=== PATIENT | female | born 1985 | race Caucasian/White ===

== ENCOUNTER 2017-11-06 16:01 | Emergency (ER) | payer OTHER ==
[2017-11-06] MEDS ORDERED: HYDROCODONE/APAP 7.5/325 MG TAB ONE (16:27)
[2017-11-06] MEDS ORDERED: IBUPROFEN 400 MG TAB ONE (16:28)
[2017-11-06] MEDS ORDERED: TETANUS & DIPHTHERIA TOX,ADULT 0.5 ML VIAL ONE (16:28)
--- NOTE | 2017-11-06 16:56 | RAD REPORT ---
EXAM DESCRIPTION: RAD - Foot Right 3 View - 11/06/2017 4:28 pm CLINICAL HISTORY: Puncture wound, sting ray injury, location not specified COMPARISON: None. FINDINGS: No fracture, dislocation or periosteal reaction. No acute bone or joint finding. No sting ray leatha or other radiopaque foreign body identifiable. No air or calcification in the soft tissues. IMPRESSION: No foreign body identifiable. No acute bone finding.
--- NOTE | 2017-11-06 17:09 | ER ---
Nurse's Notes [facility] Name: Kiran Rizvi Age: 31 yrs Sex: Female : 1985 Arrival Date: 11/06/2017 Time: 16:04 Bed 17 Private MD: out of town, doctor Diagnosis: Puncture wound without foreign body of foot-Right Presentation: 11/06 16:06 Presenting complaint: Patient states: stung by a sting ray today to the right foot. sv Transition of care: patient was not received from another setting of care. Onset of symptoms was November 06, 2017. Care prior to arrival: None. 16:06 Method Of Arrival: Wheelchair sv 16:06 Acuity: JIGNA 4 sv 16:21 Risk Assessment: Do you want to hurt yourself or someone else? Patient reports no hj desire to harm self or others. Initial Sepsis Screen: Does the patient meet any 2 criteria? No. Patient's initial sepsis screen is negative. Does the patient have a suspected source of infection? No. Patient's initial sepsis screen is negative. Triage Assessment: 16:21 General: Appears in no apparent distress. uncomfortable, Behavior is calm, cooperative, hj appropriate for age. Pain: Complains of pain in right foot. 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 - Social history:: Smoking status: Patient/guardian denies using tobacco. - Ebola Screening: : No symptoms or risks identified at this time. Screenin:21 Abuse screen: Denies threats or abuse. Denies injuries from another. Nutritional hj screening: No deficits noted. Tuberculosis screening: No symptoms or risk factors identified. Fall Risk None identified. Assessment: 16:08 Reassessment: see triage for assessment;. hj 17:00 Reassessment: Patient and/or family updated on plan of care and expected duration. Pain hj level reassessed. Patient is alert, oriented x 3, equal unlabored respirations, skin warm/dry/pink. R foot soaked in warm water;. 18:02 Reassessment: Patient and/or family updated on plan of care and expected duration. Pain hj level reassessed. Patient is alert, oriented x 3, equal unlabored respirations, skin warm/dry/pink. D/C instructions given;. Vital Signs: 16:08 BP 150 / 135; Pulse 81; Resp 22; Temp 98.2; Pulse Ox 100% ; Weight 65.77 kg; Height 5 sv ft. 5 in. (165.10 cm); Pain 10/10; 17:00 BP 140 / 96; Pulse 85; Resp 18; Pulse Ox 100% on R/A; hj 18:02 BP 145 / 95; Pulse 80; Resp 18; Pulse Ox 100% on R/A; hj 16:08 Body Mass Index 24.13 (65.77 kg, 165.10 cm) sv ED Course: 16:04 Patient arrived in ED. mr 16:05 out of town, doctor is Private Physician. mr 16:07 Triage completed. sv 16:08 Arm band placed on left wrist. sv 16:17 Kiran Chilel PA is PHCP. cp 16:17 Devan Dominguez MD is Attending Physician. cp 16:21 Javi Barlow RN is Primary Nurse. hj 16:22 Patient has correct armband on for positive identification. Bed in low position. Call hj light in reach. Side rails up X 1. Adult w/ patient. 16:27 X-ray completed. Portable x-ray completed in exam room. Patient tolerated procedure ml well. 16:28 Foot Right 3 View XRAY In Process Unspecified. EDMS 17:50 Wound care: cleaned wound to right foot with chlorhexidine and normal saline, applied dh3 triple antibiotic ointment and an non-adherent dressing and tube gauze. 18:00 No provider procedures requiring assistance completed. Patient did not have IV access hj during this emergency room visit. Administered Medications: 16:22 Drug: Ibuprofen 800 mg Route: PO; hj 17:59 Follow up: Response: No adverse reaction hj 16:22 Drug: Hydrocodone-Acetaminophen (7.5 mg-325 mg) 1 tabs Route: PO; hj 17:59 Follow up: Response: Pain is unchanged, physician notified hj 16:22 Drug: Tetanus-Diphtheria Toxoid Adult 0.5 ml {Cereal Popper: [employer]. Exp: 01/09/2019. Lot #: [id number]. } Route: IM; Site: left deltoid; 17:59 Follow up: Response: No adverse reaction hj 17:29 Drug: Dilaudid 0.5 mg Route: IM; Site: right deltoid; hj 17:59 Follow up: Response: No adverse reaction; Pain is decreased hj 17:49 Drug: Zofran 4 mg Route: PO; hj 17:59 Follow up: Response: No adverse reaction; Nausea is decreased Outcome: 17:08 Discharge ordered by . sharif 18:00 Discharged to home ambulatory, with crutches, with family. 18:00 Condition: stable 18:00 Discharge instructions given to patient, family, Instructed on discharge instructions, follow up and referral plans. medication usage, crutch walking, wound care, Demonstrated understanding of instructions, follow-up care, medications, wound care, crutch walking, Prescriptions given X 3. 18:03 Patient left the ED. Signatures: Dispatcher [employer] EDMS Fiorella Lamar RN RN sv Rivera, Maria mr Lopez, Melissa ml Joaquin, Henry, RN RN Kiran Chilel PA PA cp Herrera, Deanna 3 Corrections: (The following items were deleted from the chart) 16:09 16:08 Pulse 81bpm; Resp 22bpm; Pulse Ox 100%; Temp 98.2F; 65.77 kg; Height 5 ft. 5 in.; sv BMI: 24.1; Pain 10/10; sv
--- NOTE | 2017-11-06 17:09 | EDPHYS ---
Physician Documentation [facility] Name: Kiran Rizvi Age: 31 yrs Sex: Female : 1985 Arrival Date: 11/06/2017 Time: 16:04 Bed 17 Private MD: out of town, doctor ED Physician Devan Dominguez HPI: 11/06 16:21 This 31 yrs old Female presents to ER via Wheelchair with complaints of Stung cp by sting ray. 16:21 The patient presents with an injury, a puncture wound, stingray leatha. cp 16:21 The complaints affect the dorsum of right foot. Onset: The symptoms/episode cp began/occurred just prior to arrival. Associated signs and symptoms: Pertinent positives: pain, Pertinent negatives: calf tenderness, fever. Severity of symptoms: in the emergency department the symptoms are actually worse, markedly. 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 - Social history:: Smoking status: Patient/guardian denies using tobacco. - Ebola Screening: : No symptoms or risks identified at this time. ROS: 16:22 Eyes: Negative for injury, pain, redness, and discharge. cp 16:22 Constitutional: Negative for body aches, chills, fever, poor PO intake. 16:22 ENT: Negative for drainage from ear(s), ear pain, sore throat, difficulty swallowing, difficulty handling secretions. 16:22 Cardiovascular: Negative for chest pain, edema, palpitations. 16:22 Respiratory: Negative for cough, shortness of breath, wheezing. 16:22 Abdomen/GI: Negative for abdominal pain, nausea, vomiting, and diarrhea, constipation. 16:22 MS/extremity: Positive for pain, tenderness, of the right foot. 16:22 Skin: Positive for puncture, of the dorsum right foot. 16:22 Neuro: Negative for altered mental status, headache, weakness. 16:22 All other systems are negative. Exam: 16:30 Head/Face: Normocephalic, atraumatic. cp 16:30 Constitutional: The patient appears in no acute distress, alert, awake, non-toxic, well developed, well nourished, in obvious pain, uncomfortable. 16:30 Eyes: Periorbital structures: appear normal, Conjunctiva: normal, no exudate, no cp injection, Lids and lashes: appear normal, bilaterally. 16:30 ENT: External ear(s): are unremarkable, Nose: is normal, Mouth: is normal, Posterior pharynx: is normal, airway is patent. 16:30 Neck: ROM/movement: is normal, is supple, without pain, no range of motions limitations, no nuchal rigidity. 16:30 Chest/axilla: Inspection: normal, Palpation: is normal, no crepitus, no tenderness. 16:30 Cardiovascular: Rate: normal, Rhythm: regular. 16:30 Respiratory: the patient does not display signs of respiratory distress, Respirations: normal, no use of accessory muscles, no retractions, no splinting, no tachypnea, labored breathing, is not present, Breath sounds: are clear throughout, no decreased breath sounds, no stridor, no wheezing. 16:30 Abdomen/GI: Exam negative for discomfort, distension, guarding, Inspection: abdomen appears normal. 16:30 Back: pain, is absent, ROM is normal. 16:30 Skin: injury, that can be described as no foreign body, with mild bleeding, puncture(s), that are deep, of the dorsum of right foot. 16:30 Neuro: Orientation: to person, place \T\ time. Mentation: lucid, able to follow commands, Cerebellar function: is grossly normal, Sensation: Vital Signs: 16:08 BP 150 / 135; Pulse 81; Resp 22; Temp 98.2; Pulse Ox 100% ; Weight 65.77 kg; Height 5 sv ft. 5 in. (165.10 cm); Pain 10/10; 17:00 BP 140 / 96; Pulse 85; Resp 18; Pulse Ox 100% on R/A; hj 18:02 BP 145 / 95; Pulse 80; Resp 18; Pulse Ox 100% on R/A; hj 16:08 Body Mass Index 24.13 (65.77 kg, 165.10 cm) sv MDM: 16:18 Patient medically screened. cp 16:23 Differential diagnosis: fracture, sprain, foreign body, open fracture. cp 17:05 Counseling: I had a detailed discussion with the patient and/or guardian regarding: the cp historical points, exam findings, and any diagnostic results supporting the discharge/admit diagnosis, radiology results, the need for outpatient follow up, a family practitioner, to return to the emergency department if symptoms worsen or persist or if there are any questions or concerns that arise at home. 17:05 Response to treatment: the patient's symptoms have markedly improved after treatment, and as a result, I will discharge patient. Special discussion: I discussed in detail with the patient the higher chance of wound infection based on his presenting history. ED course: VSS. Pain improved with meds. Wound cleaned and dressed. Will discharge to home for continued monitoring. 17:07 Data reviewed: vital signs, nurses notes, radiologic studies, plain films. 11/06 16:08 Order name: Foot Right 3 View XRAY; Complete Time: 17:01 sv 11/06 17:01 Interpretation: Report reviewed. 11/06 17:02 Order name: Wound Care: please clean and irrigate wound, then dress; Complete Time: 17:53 11/06 17:07 Order name: Crutches; Complete Time: 17:53 cp Administered Medications: 16:22 Drug: Ibuprofen 800 mg Route: PO; 17:59 Follow up: Response: No adverse reaction 16:22 Drug: Hydrocodone-Acetaminophen (7.5 mg-325 mg) 1 tabs Route: PO; 17:59 Follow up: Response: Pain is unchanged, physician notified 16:22 Drug: Tetanus-Diphtheria Toxoid Adult 0.5 ml {Wellness Health Coach: [employer]. Exp: 01/09/2019. Lot #: [id number]. } Route: IM; Site: left deltoid; 17:59 Follow up: Response: No adverse reaction 17:29 Drug: Dilaudid 0.5 mg Route: IM; Site: right deltoid; 17:59 Follow up: Response: No adverse reaction; Pain is decreased 17:49 Drug: Zofran 4 mg Route: PO; hj 17:59 Follow up: Response: No adverse reaction; Nausea is decreased Disposition: 18:05 Co-signature as Attending Physician, Devan Dominguez MD. rn Disposition: 11/06/17 17:08 Discharged to Home. Impression: Puncture wound without foreign body of foot - Right. - Condition is Stable. - Discharge Instructions: Puncture Wound. - Prescriptions for Ibuprofen 800 mg Oral Tablet - take 1 tablet by ORAL route every 8 hours As needed take with food; 30 tablet. Tylenol- Codeine #3 300-30 mg Oral Tablet - take 2 tablets by ORAL route every 6 hours As needed; 15 tablet. Doxycycline Hyclate 100 mg Oral Tablet - take 1 tablet by ORAL route every 12 hours; 20 tablet. - Medication Reconciliation Form, Thank You Letter, Antibiotic Education, Prescription Opioid Use form. - Follow up: Private Physician; When: 48 Hours; Reason: Wound Recheck. - Problem is new. - Symptoms have improved. Signatures: Dispatcher [employer] Fiorella Cooper RN RN sv Nieto, Roman, MD MD rn Joaquin, Henry, RN RN hj Page, Corey, PA PA cp Corrections: (The following items were deleted from the chart) 18:03 17:08 11/06/2017 17:08 Discharged to Home. Impression: Puncture wound without foreign hj body of foot - Right. Condition is Stable. Forms are Medication Reconciliation Form, Thank You Letter, Antibiotic Education, Prescription Opioid Use. Follow up: Private Physician; When: 48 Hours; Reason: Wound Recheck. Problem is new. Symptoms have improved. cp
[2017-11-06] MEDS ORDERED: HYDROMORPHONE HCL 0.5 MG/0.5 ML INJ ONE (17:34)
[2017-11-06] MEDS ORDERED: ONDANSETRON 4 MG (ODT) TAB ONE (17:54)
== END 2017-11-06 18:03 | disposition home or self-care (01) ==
LOC: ER 16:01
DX: S91.331A Puncture wound without foreign body, right foot, initial encounter (principal); W56.81XA Bitten by other nonvenomous marine animals, initial encounter; Y93.11 Activity, swimming; Y92.832 Beach as the place of occurrence of the external cause; Z88.0 Allergy status to penicillin
CPT/HCPCS: 90714; 96372; 99284; J1170